=== PATIENT | male | born 1980 | race American Indian/Alaskan Native ===

== ENCOUNTER 2019-04-04 14:51 | Emergency (ER) | payer MEDICAID ==
[2019-04-04 15:03] VITALS: BP 124/77; PULSE 101
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
== END 2019-04-04 15:43 | disposition home or self-care (01) ==
LOC: DL.ED 14:51
DX: S60.221A Contusion of right hand, initial encounter (principal); F17.210 Nicotine dependence, cigarettes, uncomplicated; W22.8XXA Striking against or struck by other objects, initial encounter
CPT/HCPCS: 73130-RT; 99283-25

== ENCOUNTER 2020-10-12 19:10 | Emergency (ER) | payer MEDICAID ==
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
[2020-10-12 20:09] LABS: ANION GAP 17.7 mEq/L (7-13); CHLORIDE,CL 95 mmol/L (98-107); SODIUM,NA 134 mmol/L (136-145)
[2020-10-12 20:33] LABS: CORONAVIRUS COVID-19 NAA NEGATIVE (NEGATIVE)
[2020-10-12] MEDS ORDERED: Potassium Chloride 20 MEQ in Premix Bag 1 BAG IV ONE (20:35)
[2020-10-12] MEDS ORDERED: Sodium Chloride 0.9% 1,000 ML IV ONE (20:35)
[2020-10-12] MEDS ORDERED: Magnesium Sulfate/Water 2 GM in Premix Bag 1 BAG IV ONE (21:08)
[2020-10-12] MEDS ORDERED: Potassium Chloride 10 MEQ Tab.ER PO ONE (21:33)
[2020-10-12] MEDS ORDERED: Cephalexin 500 MG Cap PO ONE (21:33)
[2020-10-12 21:42] LABS: AMPHETAMINES,URINE NEGATIVE (NEGATIVE); BARBITURATES,URINE NEGATIVE (NEGATIVE); BENZODIAZEPINE,URINE NEGATIVE (NEGATIVE); MDMA (ECSTASY), URINE NEGATIVE (NEGATIVE); METHADONE,URINE NEGATIVE (NEGATIVE); METHAMPHETAMINES,URINE NEGATIVE (NEGATIVE); OPIATES,URINE NEGATIVE (NEGATIVE); OXYCODONE,URINE NEGATIVE (NEGATIVE); PHENCYCLIDINE,URINE NEGATIVE (NEGATIVE); TCA,URINE NEGATIVE (NEGATIVE)
[2020-10-13 00:28] VITALS: BP 124/67; PULSE 107
== END 2020-10-12 23:29 | disposition home or self-care (01) ==
LOC: DL.ED 19:10
DX: N39.0 Urinary tract infection, site not specified (principal); E87.6 Hypokalemia; E83.42 Hypomagnesemia; Z20.822 Contact with and (suspected) exposure to COVID-19
CPT/HCPCS: 0240U; 36415; 80053; 80305; 81001; 83735; 85025; 86140; 86308; 87086; 96365; 96366; 96368; 99283; A9270; J3475; J3480; J7030

== ENCOUNTER 2020-10-14 07:23 | Emergency (ER) | payer MEDICAID ==
[2020-10-14 07:27] VITALS: BP 129/75; PULSE 84
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
[2020-10-14 08:16] LABS: AMPHETAMINES,URINE NEGATIVE (NEGATIVE); BARBITURATES,URINE NEGATIVE (NEGATIVE); BENZODIAZEPINE,URINE NEGATIVE (NEGATIVE); MDMA (ECSTASY), URINE NEGATIVE (NEGATIVE); METHADONE,URINE NEGATIVE (NEGATIVE); METHAMPHETAMINES,URINE NEGATIVE (NEGATIVE); OPIATES,URINE NEGATIVE (NEGATIVE); OXYCODONE,URINE NEGATIVE (NEGATIVE); PHENCYCLIDINE,URINE NEGATIVE (NEGATIVE); TCA,URINE NEGATIVE (NEGATIVE)
[2020-10-14 08:21] LABS: ANION GAP 15.5 mEq/L (7-13); CHLORIDE,CL 99 mmol/L (98-107); SODIUM,NA 135 mmol/L (136-145)
[2020-10-14 08:23] LABS: ACETAMINOPHEN 0 ug/mL (10-30 (Therapeutic))
[2020-10-14] MEDS ORDERED: Iopamidol 612 MG/ML 100 ML Bottle IVPUSH ONE (08:28)
--- NOTE | 2020-10-14 09:20 | CT ---
PROCEDURE INFORMATION: Exam: CT Abdomen And Pelvis With Contrast Exam date and time: 10/14/2020 8:50 AM Age: 40 years old Clinical indication: Other: Abd pain; Additional info: Abdominal pain TECHNIQUE: Imaging protocol: Computed tomography of the abdomen and pelvis with contrast. Radiation optimization: All CT scans at this facility use at least one of these dose optimization techniques: automated exposure control; mA and/or kV adjustment per patient size (includes targeted exams where dose is matched to clinical indication); or iterative reconstruction. Contrast material: ISOVUE 300; Contrast volume: 75 ml; Contrast route: INTRAVENOUS (IV); COMPARISON: No relevant prior studies available. FINDINGS: Lungs: Dependent atelectasis in the posterior lungs. Liver: Fatty liver. Patchy areas of higher density throughout the liver are likely due to areas of fatty sparing. MRI with multiphasic imaging would be helpful in excluding mass.. Hepatomegaly. Gallbladder and bile ducts: Distended gallbladder. Mild pericholecystic edema. Findings suspicious for cholecystitis. Ultrasound recommended. Pancreas: Peripancreatic edema could be due to low-grade pancreatitis. Spleen: Normal. No splenomegaly. Adrenal glands: Normal. No mass. Kidneys and ureters: Normal. No hydronephrosis. Stomach and bowel: Unremarkable. No obstruction. No mucosal thickening. Appendix: No evidence of appendicitis. Intraperitoneal space: Small amount of free fluid in the abdomen and pelvis. Vasculature: Unremarkable. No abdominal aortic aneurysm. Lymph nodes: Mildly enlarged peripancreatic, retroperitoneal lymph nodes and portacaval lymph nodes. Urinary bladder: Unremarkable as visualized. Reproductive: Unremarkable as visualized. Bones/joints: Mild degenerative arthritis in the spine with minimal endplate osteophyte formation. Soft tissues: Unremarkable. IMPRESSION: 1. Findings suspicious for cholecystitis. Ultrasound recommended 2. Possible mild pancreatitis 3. Hepatomegaly with heterogeneous liver attenuation likely due to heterogeneous fatty infiltration but mass cannot be excluded. Multiphasic MRI recommended 4. Enlarged portacaval, peripancreatic, and retroperitoneal lymph nodes.
--- NOTE | 2020-10-14 11:19 | US ---
PROCEDURE INFORMATION: Exam: US Duplex Lower Extremity Veins, Bilateral Exam date and time: 10/14/2020 9:53 AM Age: 40 years old Clinical indication: Pain; Leg, lower; Bilateral; Additional info: Lower extremity pain (d-dimer 1440) TECHNIQUE: Imaging protocol: Real-time duplex ultrasound of the extremities with 2-D chatman scale, color Doppler flow and spectral waveform analysis with image documentation. Complete exam focused on the bilateral lower extremity veins. COMPARISON: CT Abdomen Pelvis w Cont 10/14/2020 8:50 AM FINDINGS: Right deep veins: Unremarkable. The common femoral, femoral, proximal profunda femoral and popliteal veins are patent without thrombus. Normal Doppler waveforms. Normal compressibility and/or augmentation response. Right superficial veins: Saphenofemoral junction is patent without thrombus. Left deep veins: Unremarkable. The common femoral, femoral, proximal profunda femoral and popliteal veins are patent without thrombus. Normal Doppler waveforms. Normal compressibility and/or augmentation response. Left superficial veins: Saphenofemoral junction is patent without thrombus. Soft tissues: Unremarkable. IMPRESSION: No evidence of deep vein thrombosis.
--- NOTE | 2020-10-14 11:20 | US ---
PROCEDURE INFORMATION: Exam: US Abdomen, Limited; Right Upper Quadrant Exam date and time: 10/14/2020 10:32 AM Age: 40 years old Clinical indication: Abnormal findings; Abnormal radiologic finding of the abdomen; Radiologic exam and body structure: CT; Additional info: Enlarged gallbladder (ct suggests ultrasound) TECHNIQUE: Imaging protocol: US abdomen. Real time ultrasound with image documentation. Limited exam focused on the right upper quadrant. COMPARISON: CT Abdomen Pelvis w Cont 10/14/2020 8:50 AM FINDINGS: Liver: Normal. No masses. Gallbladder: The the gallbladder is distended. There is a large amount of gallbladder sludge. Gallbladder wall measures 3.4 mm in thickness which is just above the upper limits of normal. Common bile duct: No bile duct dilatation. No appreciable pericholecystic edema. Pancreas: Pancreas was not seen Right kidney: Normal. No mass. No hydronephrosis. IMPRESSION: Distended gallbladder with large amount of gallbladder sludge in the gallbladder wall just above the upper limits of normal. Findings could be due to cholecystitis. Correlate clinically
[2020-10-14] MEDS ORDERED: Magnesium Sulfate/Water 2 GM in Premix Bag 1 BAG IV ONE (12:31)
[2020-10-14] MEDS ORDERED: cefTRIAXone 1 GM in Sodium Chloride 0.9% 50 ML IV ONE (12:31)
== END 2020-10-14 13:15 ==
LOC: DL.ED 07:23
DX: K81.9 Cholecystitis, unspecified (principal); E83.42 Hypomagnesemia; Z72.0 Tobacco use; Z88.0 Allergy status to penicillin
CPT/HCPCS: 36415; 74177; 76705; 80053; 80143; 80305; 80307; 81001; 82140; 82150; 83605; 83690; 83735; 85025; 85379; 87086; 93970; 96374; 96375; 99285; J0696; J3475; Q9967; 99284

== ENCOUNTER 2021-04-03 09:43 | Emergency (ER) | payer MEDICAID ==
[2021-04-03] MEDS ORDERED: Ketorolac 30 MG/ML SDV IM ONE (10:30)
[2021-04-03] MEDS ORDERED: Acetaminophen/HYDROcodone 325-10 MG Tab PO ONE (10:30)
[2021-04-03 10:48] VITALS: BP 114/72; PULSE 96
[2021-04-03] MEDS ORDERED: cefTRIAXone 1 GM, Lidocaine 1% 2.1 ML IM ONE ×2 (11:12)
[2021-04-03] MEDS ORDERED: Doxycycline Monohydrate 100 MG Cap PO ONE (11:13)
[2021-04-07 08:56] LABS: C.TRACHOMATIS BY TMA Negative (Negative); N.GONORRHOEAE BY TMA Positive (Negative)
== END 2021-04-03 12:09 | disposition home or self-care (01) ==
LOC: DL.ED 09:43
DX: N45.3 Epididymo-orchitis (principal); N43.3 Hydrocele, unspecified; Z88.0 Allergy status to penicillin; Z72.0 Tobacco use
CPT/HCPCS: 36415; 74176; 76870; 81001; 85025; 86140; 87086; 87491; 87563; 87591; 96372; 99284; A9270; J0696; J1885

== ENCOUNTER 2021-06-07 00:45 | Emergency (ER) | payer MEDICAID | END 2021-06-07 01:50 | disposition left against medical advice (07) | LOC: DL.ED 00:45 | DX: Z53.21 Procedure and treatment not carried out due to patient leaving prior to being seen by health care provider (principal) ==

== ENCOUNTER 2023-02-21 13:22 | Emergency (ER) | payer MEDICAID ==
[~2023-02-21 13:22] MED LIST: Sodium Chloride 0.9% 10 ML Syringe FLUSH PRN
[2023-02-21] MEDS ORDERED: Sodium Chloride 0.9% 1,000 ML IV ONE (13:24)
[2023-02-21] MEDS ORDERED: Pantoprazole 40 MG Vial IVPUSH ONE (13:24)
[2023-02-21] MEDS ORDERED: Tranexamic Acid 1,000 MG in Sodium Chloride 0.9% 100 ML IV ONE (13:25)
[2023-02-21 13:32] LABS: BASOPHILS PERCENT AUTO 0.2 % (0.0-1.0); EOSINOPHILS PERCENT AUTO 1.4 % (1.0-3.0); HEMATOCRIT 26.3 % (40.0-54.0); LYMPHOCYTES PERCENT AUTO 18.9 % (20.5-50.1); MEAN CORPUSCULAR HEMOGLOBIN 30.6 pg (27.0-34.0); MEAN CORPUSCULAR HGB CONC 34.2 g/dL (33.0-35.0); MEAN CORPUSCULAR VOLUME 89.5 fL (80-100); MONOCYTES PERCENT AUTO 7.1 % (2-8); NEUTROPHILS PERCENT AUTO 72.4 % (42.2-75.2); PLATELET COUNT,PLT 166 10^3/uL (150-450); RED BLOOD CELL COUNT 2.94 10^6/uL (4.6-6.2); WHITE BLOOD CELL COUNT,WBC 13.3 10^3/uL (5.0-10.0)
[2023-02-21 13:43] VITALS: BP 96/68; PULSE 93
[2023-02-21 13:47] LABS: PROTHROMBIN TIME 10.6 SEC (9.0-12.0)
[2023-02-21 13:51] LABS: ALBUMIN 2.8 g/dL (3.4-5.0); ANION GAP 11.8 mEq/L (7-13); BILIRUBIN TOTAL 0.7 mg/dL (0.2-1.0); CALCIUM 8.2 mg/dL (8.5-10.1); CREATININE 1.5 mg/dL (0.70-1.30); EST CRCL DRUG DOSING (CG) 69.7 mL/min; POTASSIUM,K 2.8 mmol/L (3.5-5.1); PROTEIN TOTAL,TP 5.8 g/dL (6.4-8.2)
[2023-02-21 13:52] LABS: A/G RATIO 0.93
[2023-02-21] MEDS: Pantoprazole 40 MG in Sodium Chloride 0.9% 100 ML IV SCH ×2 (13:52→13:57)
== END 2023-02-21 15:52 ==
LOC: DL.ED 13:22
DX: K92.2 Gastrointestinal hemorrhage, unspecified (principal); Z88.0 Allergy status to penicillin
CPT/HCPCS: 36415; 80053; 82272; 85025; 85610; 86850; 86900; 86901; 96365; 96366; 96368; 99285; 99285-25; C9113; J3490; J7030

== ENCOUNTER 2024-02-22 20:23 | Emergency (ER) | payer MEDICAID ==
[2024-02-22] MEDS: Oxymetazoline 0.05% Nasal Spray 30 ML Bottle NAS ONE (21:19)
[2024-02-22 21:26] LABS: BASOPHILS PERCENT AUTO 0.9 % (0.0-1.0); EOSINOPHILS PERCENT AUTO 3.8 % (1.0-3.0); HEMATOCRIT 42.6 % (40.0-54.0); HEMOGLOBIN 14.5 g/dL (14.0-18.0); LYMPHOCYTES PERCENT AUTO 21.8 % (20.5-50.1); MEAN CORPUSCULAR HEMOGLOBIN 30.2 pg (27.0-34.0); MEAN CORPUSCULAR VOLUME 88.8 fL (80-100); MONOCYTES PERCENT AUTO 11.6 % (2-8); NEUTROPHILS PERCENT AUTO 61.9 % (42.2-75.2); PLATELET COUNT,PLT 225 10^3/uL (150-450); WHITE BLOOD CELL COUNT,WBC 8.1 10^3/uL (5.0-10.0)
[2024-02-22 21:46] LABS: ANION GAP 12.4 mEq/L (7-13); BILIRUBIN TOTAL 0.7 mg/dL (0.2-1.0); BUN/CREATININE RATIO 25.3 (No establ ref range); CALCIUM 9.5 mg/dL (8.5-10.1); CREATININE 0.83 mg/dL (0.70-1.30); EST CRCL DRUG DOSING (CG) 124.66 mL/min; POTASSIUM,K 4.4 mmol/L (3.5-5.1); PROTEIN TOTAL,TP 8.2 g/dL (6.4-8.2)
[2024-02-22 21:50] LABS: INR 1.1 (0.9-1.2); PROTHROMBIN TIME 11.4 SEC (9.0-12.0)
[2024-02-22] MEDS ORDERED: Tranexamic Acid 1,000 MG in Sodium Chloride 0.9% 100 ML IV ONE (22:03)
[2024-02-22] MEDS: Tranexamic Acid 1,000 MG/10 ML Vial TOP ONE (22:12)
[2024-02-23 01:05] VITALS: BP 127/88; PULSE 65
== END 2024-02-23 01:04 | disposition home or self-care (01) ==
LOC: DL.ED 20:23
DX: R04.0 Epistaxis (principal); S02.2XXA Fracture of nasal bones, initial encounter for closed fracture; I10 Essential (primary) hypertension; R94.5 Abnormal results of liver function studies; F17.210 Nicotine dependence, cigarettes, uncomplicated; Z88.0 Allergy status to penicillin; W18.30XA Fall on same level, unspecified, initial encounter
CPT/HCPCS: 30901; 36415; 70486; 80053; 85025; 85610; 99284; A9270

== ENCOUNTER 2024-06-26 02:59 | Emergency (ER) | payer MEDICAID ==
[2024-06-26] MEDS: Sodium Chloride 0.9% 1,000 ML IV ONE (03:03)
[2024-06-26] MEDS: Ondansetron 4 MG/2 ML SDV IVPUSH ONE (03:15)
[2024-06-26] MEDS: Morphine 4 MG/ML Syringe IVPUSH ONE (03:17)
[2024-06-26 03:22] LABS: EOSINOPHILS PERCENT AUTO 2.5 % (1.0-3.0); HEMATOCRIT 39.5 % (40.0-54.0); HEMOGLOBIN 13.5 g/dL (14.0-18.0); LYMPHOCYTES PERCENT AUTO 37.5 % (20.5-50.1); MEAN CORPUSCULAR HGB CONC 34.2 g/dL (33.0-35.0); MEAN CORPUSCULAR VOLUME 84.9 fL (80-100); MONOCYTES PERCENT AUTO 5.3 % (2-8); NEUTROPHILS PERCENT AUTO 53.7 % (42.2-75.2); PLATELET COUNT,PLT 175 10^3/uL (150-450); RED BLOOD CELL COUNT 4.65 10^6/uL (4.6-6.2); WHITE BLOOD CELL COUNT,WBC 7.2 10^3/uL (5.0-10.0)
[2024-06-26] MEDS: Iopamidol 755 Mg/ML 100 ML Bottle IVPUSH ONE (03:38)
[2024-06-26 03:41] LABS: LACTIC ACID 1.5 mmol/L (0.4-2.0)
[2024-06-26 03:46] LABS: ALANINE AMINOTRANSFERASE,ALT 153 U/L (16-63); ALBUMIN 4.1 g/dL (3.4-5.0); ALKALINE PHOSPHATASE 98 U/L (46-116); ANION GAP 17.7 mEq/L (7-13); ASPARTATE AMNIOTRANSFERASE,AST 130 U/L (15-37); BLOOD UREA NITROGEN,BUN 10 mg/dL (7-18); BUN/CREATININE RATIO 13.2 (No establ ref range); CALCIUM 8.5 mg/dL (8.5-10.1); CARBON DIOXIDE,CO2 22 mmol/L (21-32); CHLORIDE,CL 108 mmol/L (98-107); CREATININE 0.76 mg/dL (0.70-1.30); ESTIMATED GFR 114 mL/min (>=60); ETHANOL BLOOD MEDICAL 312 mg/dL (0); GLUCOSE RANDOM 107 mg/dL (70-99); LIPASE 85 U/L (16-77); MAGNESIUM 1.9 mg/dL (1.8-2.4); POTASSIUM,K 3.7 mmol/L (3.5-5.1); PROTEIN TOTAL,TP 8.1 g/dL (6.4-8.2); SODIUM,NA 144 mmol/L (136-145)
[2024-06-26] MEDS: Diphtheria,Pertussis(Acell),Tetanus Vaccine 0.5 ML Syringe IM ONE (03:50)
[2024-06-26] MEDS: Tranexamic Acid 1,000 MG in Sodium Chloride 0.9% 100 ML IV ONE (03:51)
[2024-06-26] MEDS: ceFAZolin 2 GM Vial IVPUSH ONE (03:51)
[2024-06-26] MEDS ORDERED: Lidocaine 1% 30 ML SDV INJECT ONE (03:53)
== END 2024-06-26 05:49 | disposition home or self-care (01) ==
LOC: DL.ED 02:59
DX: S21.102A Unspecified open wound of left front wall of thorax without penetration into thoracic cavity, initial encounter (principal); Z23 Encounter for immunization; I10 Essential (primary) hypertension; Z88.0 Allergy status to penicillin; X50.9XXA Other and unspecified overexertion or strenuous movements or postures, initial encounter
CPT/HCPCS: 12001; 36415; 71045; 71260; 74177; 80053; 80307; 83605; 83690; 83735; 84484; 85025; 90471; 90715; 93010; 96374; 96375; 99284; 99285; J0690; J2270; J2405; J7030; Q9967

== ENCOUNTER 2024-08-03 14:03 | Emergency (ER) | payer MEDICAID ==
[2024-08-03 14:13] VITALS: BP 132/84; PULSE 93
[2024-08-03] MEDS ORDERED: Thiamine 200 MG in Sodium Chloride 0.9% 1,000 ML IV ONE (14:13)
[2024-08-03 14:27] LABS: BASOPHILS PERCENT AUTO 0.5 % (0.0-1.0); HEMATOCRIT 42.8 % (40.0-54.0); HEMOGLOBIN 13.8 g/dL (14.0-18.0); LYMPHOCYTES PERCENT AUTO 37.9 % (20.5-50.1); MEAN CORPUSCULAR HEMOGLOBIN 28.4 pg (27.0-34.0); MEAN CORPUSCULAR HGB CONC 32.2 g/dL (33.0-35.0); MEAN CORPUSCULAR VOLUME 88.1 fL (80-100); MONOCYTES PERCENT AUTO 5.4 % (2-8); NEUTROPHILS PERCENT AUTO 52.2 % (42.2-75.2); PLATELET COUNT,PLT 190 10^3/uL (150-450); RED BLOOD CELL COUNT 4.86 10^6/uL (4.6-6.2); WHITE BLOOD CELL COUNT,WBC 6.5 10^3/uL (5.0-10.0)
[2024-08-03 14:46] LABS: LACTIC ACID 1.3 mmol/L (0.4-2.0)
[2024-08-03 14:50] LABS: ANION GAP 15.6 mEq/L (7-13); BILIRUBIN TOTAL 0.5 mg/dL (0.2-1.0); BUN/CREATININE RATIO 8.7 (No establ ref range); CALCIUM 8.9 mg/dL (8.5-10.1); CREATININE 0.69 mg/dL (0.70-1.30); EST CRCL DRUG DOSING (CG) 141.06 mL/min; MAGNESIUM 1.9 mg/dL (1.8-2.4); POTASSIUM,K 3.6 mmol/L (3.5-5.1); PROTEIN TOTAL,TP 8.2 g/dL (6.4-8.2)
== END 2024-08-03 14:31 ==
LOC: DL.ED 14:03
DX: R10.9 Unspecified abdominal pain (principal); R10.813 Right lower quadrant abdominal tenderness; I10 Essential (primary) hypertension; Z88.0 Allergy status to penicillin
CPT/HCPCS: 36415; 80053; 80307; 83605; 83735; 85025; 86850; 86900; 86901; 99283; 99284

== ENCOUNTER 2025-01-11 04:32 | Emergency (ER) | payer MEDICAID ==
[2025-01-11 04:46] VITALS: BP 121/74; PULSE 79
== END 2025-01-11 05:25 | disposition home or self-care (01) ==
LOC: DL.ED 04:32
DX: R04.0 Epistaxis (principal); I10 Essential (primary) hypertension; Z88.0 Allergy status to penicillin
CPT/HCPCS: 30901; 99283; A9270